=== PATIENT | male | born 1995 | race Caucasian/White ===

== ENCOUNTER 2016-03-09 19:14 | Emergency (ER) | payer BC, OTHER ==
[2016-03-09] MEDS ORDERED: IBUPROFEN 600 MG STARTER PACK 4 TAB BTL PO STA (20:18)
--- NOTE | 2016-03-09 20:26 | ED ---
General Adult HPI - General Chief complaint: Headache Stated complaint: Injury/Dizzy/Nausea Time Seen by Provider: 03/09/16 20:02 Source: patient, RN notes reviewed Mode of arrival: ambulatory Limitations: no limitations - History of Present Illness Initial comments: Patient 21-year-old male who presents emergency room today with chief complaint of a head injury that occurred 2 days ago. Does admit that he was hit in the head by a heavy door on the left side. States does not remember much of the accident. States he is unsure if he lost consciousness. Patient admits that he 's been having increased headaches over the last 2 days. Patient admits to nausea at times. Patient denies any other complaints or associated symptoms. Patient denies any recent fever, chills, shortness of breath, chest pain, back pain, abdominal pain, vomiting, numbness or tingling, dysuria or hematuria, constipation or diarrhea, visual changes, or any other complaints. - Related Data Home Medications Medication Instructions Recorded Confirmed No Known Home Medications [No 11/01/13 11/01/13 Known Home Medications] Allergies Allergy/AdvReac Type Severity Reaction Status Date / Time No Known Allergies Allergy Verified 03/09/16 19:24 Review of Systems ROS Statement: Those systems with pertinent positive or pertinent negative responses have been documented in the HPI. ROS Other: All systems not noted in ROS Statement are negative. Past Medical History Additional Past Medical History / Comment(s): concussion History of Any Multi-Drug Resistant Organisms: None Reported Additional Past Surgical History / Comment(s): deviated septum Past Psychological History: Anxiety, Bipolar, Depression Smoking Status: Never smoker Past Alcohol Use History: None Reported Past Drug Use History: None Reported General Exam - General Exam Comments Initial Comments: General: The patient is awake and alert, in no distress, and does not appear acutely ill. Eye: Pupils are equal, round and reactive to light, extra-ocular movements are intact. No nystagmus. There is normal conjunctiva bilaterally. No signs of icterus. Ears, nose, mouth and throat: There are moist mucous membranes and no oral lesions. Neck: The neck is supple, there is no tenderness or JVD. Cardiovascular: There is a regular rate and rhythm. No murmur, rub or gallop is appreciated. Respiratory: Lungs are clear to auscultation, respirations are non-labored, breath sounds are equal. No wheezes, stridor, rales, or rhonchi. Musculoskeletal: Normal ROM, no tenderness. Strength 5/5. Sensation intact. Pulses equal bilaterally 2+. Neurological: A&O x 3. CN II-XII intact, There are no obvious motor or sensory deficits. Coordination appears grossly intact. Speech is normal. Normal finger nose testing. Normal rapid alternating movements. Strength is 5/5 bilaterally both upper and lower some extremities. Normal gait. Skin: Skin is warm and dry and no rashes or lesions are noted. Psychiatric: Cooperative, appropriate mood & affect, normal judgment. Limitations: no limitations Course Vital Signs 03/09/16 19:20 Temperature 97.5 F L Pulse Rate 73 Respiratory 18 Rate Blood Pressure 142/69 O2 Sat by Pulse 98 Oximetry Medical Decision Making - Medical Decision Making Patient's CT negative for any acute abnormalities. Results were discussed with the patient. Patient advised to follow-up family doctor or his neurologist. Advised return to emergency room if any symptoms increase or worsen or for any other concerns. Disposition Clinical Impression: Post concussion syndrome Disposition: HOME SELF-CARE Condition: Good Instructions: Post Concussion Syndrome (ED) Additional Instructions: Please use medication as discussed. Please follow-up with family doctor/ neurologist over the next 2-5 days. Please limit physical activity. Please return to emergency room if the symptoms increase or worsen or for any other concerns. Time of Disposition: 21:00
--- NOTE | 2016-03-09 20:55 | CT ---
EXAMINATION TYPE: CT brain wo con DATE OF EXAM: 03/09/2016 8:21 PM COMPARISON: 11/01/2013 HISTORY: Pt states of OLIVEIRA and dizziness after injury to head x1 week ago. CT DLP: 931.9 mGycm Automated exposure control for dose reduction was used. FINDINGS: The ventricles and sulci appear normal. There is no mass effect nor midline shift. There is no sign o f intracranial hemorrhage. The calvarium is intact. IMPRESSION: Negative unenhanced head CT scan. No change.
[2016-03-09 21:07] VITALS: BP 140/80; PULSE 78; RESP 16; TEMP 97.8
== END 2016-03-09 21:06 | disposition home or self-care (01) ==
LOC: EC 19:14
DX: F07.81 Postconcussional syndrome (principal); W22.09XA Striking against other stationary object, initial encounter
CPT/HCPCS: 70450; 99284

== ENCOUNTER 2016-07-15 13:24 | Emergency (ER) | payer BC, OTHER ==
[2016-07-15] MEDS ORDERED: SODIUM CHLORIDE 0.9% 1,000 ML IV STA (13:49)
--- NOTE | 2016-07-15 13:56 | ED ---
General Adult HPI - General Chief complaint: Nausea/Vomiting/Diarrhea Stated complaint: abdominal pain Time Seen by Provider: 07/15/16 13:37 Source: patient, RN notes reviewed Mode of arrival: ambulatory Limitations: no limitations - History of Present Illness Initial comments: This is a 21-year-old male with a benign past medical history states he's had some left upper quadrant abdominal area pain for the past several days. He states he gets worse with food or fluid intake he has worse with deep breathing. When it comes on it is sharp severe 10/10 currently at rest he is pain-free. He denies any fevers chills or sweats no dysuria hematuria no diarrhea constipation. He was seen at [facility] last night he did have a noncontrast CT done and some lab work. A noncontrast CT was negative for any acute findings and lab work UA was negative the CBC did show some mild elevation of the white count with a left shift otherwise it was unremarkable the electrolyte study was essentially within normal limits. He presents today with persistent pain and continued pain. He points again to the left upper quadrant he denies any cough or phlegm production he does note however that recently he is been getting short of breath after will use to be normal exertion. No recent trips no recent trauma he does do a lot of lifting at work. He does not recall any incident that may have hurt his chest or abdominal region. - Related Data Home Medications Medication Instructions Recorded Confirmed Omeprazole [PriLOSEC] 40 mg PO DAILY 07/15/16 07/15/16 Ondansetron Odt [Zofran Odt] 8 mg PO Q8HR PRN 07/15/16 07/15/16 traMADol HCL [Ultram] 50 - 100 mg PO Q6HR PRN 07/15/16 07/15/16 Previous Rx's Medication Instructions Recorded Ibuprofen 800 mg PO Q6HR PRN #20 tablet 07/15/16 Pantoprazole Sodium [Protonix] 20 mg PO AC-BID #14 tablet. 07/15/16 Allergies Allergy/AdvReac Type Severity Reaction Status Date / Time No Known Allergies Allergy Verified 07/15/16 13:50 Review of Systems ROS Statement: Those systems with pertinent positive or pertinent negative responses have been documented in the HPI. ROS Other: All systems not noted in ROS Statement are negative. Past Medical History Additional Past Medical History / Comment(s): concussion History of Any Multi-Drug Resistant Organisms: None Reported Additional Past Surgical History / Comment(s): deviated septum Past Psychological History: Anxiety, Bipolar, Depression Smoking Status: Never smoker Past Alcohol Use History: None Reported Past Drug Use History: None Reported General Exam - General Exam Comments Initial Comments: This is a well-developed well-nourished awake alert oriented x 3 male Limitations: no limitations General appearance: alert, in no apparent distress Head exam: Present: atraumatic, normocephalic, normal inspection Eye exam: Present: normal appearance, PERRL, EOMI. Absent: scleral icterus, conjunctival injection, periorbital swelling ENT exam: Present: normal exam, mucous membranes moist Neck exam: Present: normal inspection. Absent: tenderness, meningismus, lymphadenopathy Respiratory exam: Present: normal lung sounds bilaterally, chest wall tenderness (Some tenderness along the left upper costochondral and costosternal margin. Step-off or crepitation). Absent: respiratory distress, wheezes, rales , rhonchi, stridor Cardiovascular Exam: Present: regular rate, normal rhythm, normal heart sounds. Absent: systolic murmur, diastolic murmur, rubs, gallop, clicks GI/Abdominal exam: Present: soft, tenderness (Very mild left upper quadrant tenderness palpation no guarding rebound masses or bruits), normal bowel sounds. Absent: distended, guarding, rebound, rigid Extremities exam: Present: normal inspection, full ROM, normal capillary refill. Absent: tenderness, pedal edema, joint swelling, calf tenderness Back exam: Present: normal inspection Neurological exam: Present: alert, oriented X3, CN II-XII intact Psychiatric exam: Present: normal affect, normal mood Skin exam: Present: warm, dry, intact, normal color. Absent: rash Course Vital Signs 07/15/16 13:34 Temperature 97.4 F L Pulse Rate 69 Respiratory 20 Rate Blood Pressure 125/62 O2 Sat by Pulse 98 Oximetry - Reevaluation(s) Reevaluation #1: 07/15/16 16:05 I did reevaluate patient several occasions patient had some minimal relief with the GI cocktail and Toradol doesn't help very much the patient does have 2 appear distinct issues going on was mild gastritis the second seems be some costochondritis. He will continue his current medications that were prescribed at the [facility]. He'll also be placed on medications for gastritis and medication L for the costochondritis Medical Decision Making - Lab Data Result diagrams: 07/15/16 13:58 07/15/16 13:58 Lab Results 07/15/16 07/15/16 07/15/16 Range/Units 13:58 13:58 13:58 WBC 10.6 (3.8-10.6) k/uL RBC 5.17 (4.30-5.90) m/uL Hgb 15.4 (13.0-17.5) gm/dL Hct 44.9 (39.0-53.0) % MCV 86.9 (80.0-100.0) fL MCH 29.8 (25.0-35.0) pg MCHC 34.3 (31.0-37.0) g/dL RDW 13.4 (11.5-15.5) % Plt Count 199 (150-450) k/uL Neutrophils % 79 % Lymphocytes % 10 % Monocytes % 7 % Eosinophils % 1 % Basophils % 0 % Neutrophils # 8.4 H (1.3-7.7) k/uL Lymphocytes # 1.1 (1.0-4.8) k/uL Monocytes # 0.8 (0-1.0) k/uL Eosinophils # 0.1 (0-0.7) k/uL Basophils # 0.0 (0-0.2) k/uL D-Dimer (<0.60) mg/L FEU Sodium 140 (137-145) mmol/L Potassium 4.1 (3.5-5.1) mmol/L Chloride 103 (98-107) mmol/L Carbon Dioxide 27 (22-30) mmol/L Anion Gap 10 mmol/L BUN 10 (9-20) mg/dL Creatinine 0.87 (0.66-1.25) mg/dL Est GFR (MDRD) Af Amer >60 (>60 ml/min/1.73 sqM) Est GFR (MDRD) Non-Af >60 (>60 ml/min/1.73 sqM) Glucose 93 (74-99) mg/dL Calcium 9.6 (8.4-10.2) mg/dL Magnesium 2.0 (1.6-2.3) mg/dL Total Bilirubin 1.0 (0.2-1.3) mg/dL AST 32 (17-59) U/L ALT 48 (21-72) U/L Alkaline Phosphatase 75 (38-126) U/L Total Creatine Kinase (55-170) U/L CK-MB (CK-2) (0.0-2.4) ng/mL CK-MB (CK-2) Rel Index Total Protein 7.7 (6.3-8.2) g/dL Albumin 4.6 (3.5-5.0) g/dL Amylase 63 (30-110) U/L Lipase 55 (23-300) U/L Urine Color Yellow Urine Appearance Turbid (Clear) Urine pH 7.5 (5.0-8.0) Ur Specific [place] 1.018 (1.001-1.035) Urine Protein Negative (Negative) Urine Glucose (UA) Negative (Negative) Urine Ketones Negative (Negative) Urine Blood Negative (Negative) Urine Nitrite Negative (Negative) Urine Bilirubin Negative (Negative) Urine Urobilinogen 2.0 (<2.0) mg/dL Ur Leukocyte Esterase Negative (Negative) Amorphous Sediment Occasional H (None) /hpf 07/15/16 07/15/16 Range/Units 13:58 13:58 WBC (3.8-10.6) k/uL RBC (4.30-5.90) m/uL Hgb (13.0-17.5) gm/dL Hct (39.0-53.0) % MCV (80.0-100.0) fL MCH (25.0-35.0) pg MCHC (31.0-37.0) g/dL RDW (11.5-15.5) % Plt Count (150-450) k/uL Neutrophils % % Lymphocytes % % Monocytes % % Eosinophils % % Basophils % % Neutrophils # (1.3-7.7) k/uL Lymphocytes # (1.0-4.8) k/uL Monocytes # (0-1.0) k/uL Eosinophils # (0-0.7) k/uL Basophils # (0-0.2) k/uL D-Dimer 0.29 (<0.60) mg/L FEU Sodium (137-145) mmol/L Potassium (3.5-5.1) mmol/L Chloride (98-107) mmol/L Carbon Dioxide (22-30) mmol/L Anion Gap mmol/L BUN (9-20) mg/dL Creatinine (0.66-1.25) mg/dL Est GFR (MDRD) Af Amer (>60 ml/min/1.73 sqM) Est GFR (MDRD) Non-Af (>60 ml/min/1.73 sqM) Glucose (74-99) mg/dL Calcium (8.4-10.2) mg/dL Magnesium (1.6-2.3) mg/dL Total Bilirubin (0.2-1.3) mg/dL AST (17-59) U/L ALT (21-72) U/L Alkaline Phosphatase (38-126) U/L Total Creatine Kinase 308 H (55-170) U/L CK-MB (CK-2) 2.6 H* (0.0-2.4) ng/mL CK-MB (CK-2) Rel Index 0.8 Total Protein (6.3-8.2) g/dL Albumin (3.5-5.0) g/dL Amylase (30-110) U/L Lipase (23-300) U/L Urine Color Urine Appearance (Clear) Urine pH (5.0-8.0) Ur Specific [place] (1.001-1.035) Urine Protein (Negative) Urine Glucose (UA) (Negative) Urine Ketones (Negative) Urine Blood (Negative) Urine Nitrite (Negative) Urine Bilirubin (Negative) Urine Urobilinogen (<2.0) mg/dL Ur Leukocyte Esterase (Negative) Amorphous Sediment (None) /hpf Disposition Clinical Impression: Gastritis, Costochondritis, acute Disposition: HOME SELF-CARE Condition: Good Instructions: Acute Nausea and Vomiting (ED), Gastritis (ED), Costochondritis ( ED) Prescriptions: Ibuprofen 800 mg PO Q6HR PRN #20 tablet PRN Reason: Pain Pantoprazole Sodium [Protonix] 20 mg PO AC-BID #14 tablet.dr Referrals: Wandy Mcneill MD [Primary Care Provider] - 1-2 days
[2016-07-15 14:40] LABS: Basophils % (A) 0 %; CHCM 34.7; Eosinophils # (A) 0.1 k/uL (0-0.7); Eosinophils % (A) 1 %; HCT 44.9 % (39.0-53.0); HGB 15.4 gm/dL (13.0-17.5); Luc # (Auto) 0.22; Luc % (Auto) 2; Lymphocytes # (A) 1.1 k/uL (1.0-4.8); Lymphocytes % (A) 10 %; MCH 29.8 pg (25.0-35.0); MCHC 34.3 g/dL (31.0-37.0); MCV 86.9 fL (80.0-100.0); Monocytes # (A) 0.8 k/uL (0-1.0); Monocytes % (A) 7 %; Neutrophils # (A) 8.4 k/uL (1.3-7.7); Neutrophils % (A) 79 %; RBC 5.17 m/uL (4.30-5.90); RDW 13.4 % (11.5-15.5); WBC 10.6 k/uL (3.8-10.6); WBC (Perox) 10.31
[2016-07-15 14:43] LABS: Amorphous Sediment,Urine Occasional /hpf; Appearance,Urine Turbid (Clear); Bilirubin,Urine Negative (Negative); Glucose,Urine (UA) Negative (Negative); Ketones,Urine Negative (Negative); Leukocyte Esterase,Urine Negative (Negative); Nitrite,Urine Negative (Negative); PH, Urine 7.5 (5.0-8.0); Particle Count 14255; Protein,Urine Negative (Negative); Specific Gravity,Urine 1.018 (1.001-1.035); UA Billing (MACRO vs. MICRO) MICRO
[2016-07-15 14:48] LABS: ALT 48 U/L (21-72); AST 32 U/L (17-59); Alkaline Phosphatase 75 U/L (38-126); Amylase 63 U/L (30-110); Anion Gap 10 mmol/L; Blood Urea Nitrogen 10 mg/dL (9-20); Calcium 9.6 mg/dL (8.4-10.2); Carbon Dioxide 27 mmol/L (22-30); Chloride 103 mmol/L (98-107); Glucose 93 mg/dL (74-99); Non-African American GFR(MDRD) >60 (>60 ml/min/1.73 sqM); Potassium 4.1 mmol/L (3.5-5.1); Sodium 140 mmol/L (137-145); Total Protein 7.7 g/dL (6.3-8.2)
--- NOTE | 2016-07-15 14:53 | XR ---
EXAMINATION TYPE: XR chest 2V DATE OF EXAM: 07/15/2016 2:19 PM COMPARISON: NONE HISTORY: Left upper quadrant pain TECHNIQUE: Frontal and lateral views of the chest are obtained. FINDINGS: Heart and mediastinum are normal. Lungs are clear. Diaphragm is normal. Bony thorax is int act. IMPRESSION: Normal chest
--- NOTE | 2016-07-15 14:55 | XR ---
EXAMINATION TYPE: XR KUB DATE OF EXAM: 07/15/2016 2:19 PM COMPARISON: NONE HISTORY: Left upper quadrant pain TECHNIQUE: 2 views FINDINGS: Bowel gas pattern is normal. There is no sign of intestinal obstruction or pneumoperitoneum . Fecal pattern is normal. Lung bases are clear. There are no pathologic calcifications over the kidn eys. IMPRESSION: Nonacute abdomen.
[2016-07-15] MEDS ORDERED: MAG HYDROX/AL HYDROX/SIMETH 30 ML, HYOSCYAMINE ELIXIR 10 ML, CIMETIDINE HCL 300 MG PO STA ×3 (15:03)
[2016-07-15 15:15] LABS: Creatine Kinase MB 2.6 ng/mL (0.0-2.4)
[2016-07-15] MEDS ORDERED: KETOROLAC 30 MG/ML 1 ML VIAL IVP STA (15:44)
[2016-07-15 16:16] VITALS: BP 113/59; PULSE 80; RESP 16; TEMP 97.8
== END 2016-07-15 16:45 | disposition home or self-care (01) ==
LOC: EC 13:24
DX: K29.70 Gastritis, unspecified, without bleeding (principal); M94.0 Chondrocostal junction syndrome [Tietze]; Z79.899 Other long term (current) drug therapy
CPT/HCPCS: 99284; 96374; 96361 ×3; 36415; 85379; 80053; 82150; 82550; 82553; 83690; 83735; 85025; 81001; 71020; 74000; J1885

== ENCOUNTER 2017-08-07 11:33 | Inpatient (IN) | payer BC, MEDICAID ==
[2017-08-07 13:03] VITALS: RESP 16
[2017-08-07] MEDS ORDERED: MAG HYDROX/AL HYDROX/SIMETH 30 ML CUP PO PRN (13:20)
[2017-08-07] MEDS ORDERED: ACETAMINOPHEN TAB 325 MG TAB PO PRN (13:20)
--- NOTE | 2017-08-07 13:59 | P.HP ---
Psychiatric H&P - . H&P Date: 08/07/17 History & Physical: Identification data: The patient is a single 22-year-old male transferred from [facility] with history of depression and suicidal ideation. History of Present Illness: His mother brought him to the emergency room at [facility] after he confided in her his feelings of depression and thoughts of suicide. He stated that he has been feeling depressed for many years and depression has worsened significantly since the of his grandfather 2 years ago. He began to experience feelings of hopelessness, helplessness and thoughts of suicide after taking a job with the [employer] and working in [employer]. He stated that [place] his entire life and the 5 months he was in [place] was the first time he had been alone. He stated he couldn't stand being away from his family for such an extended period time and living in motels. His employment contract was one year and he left after 5 months. He stated that he feels "empty and hopeless". Over the last 5 months he has been persistently sad, hopeless and helpless. He described feelings of worthlessness and self reproach. He feels that he has let himself know the people down. He feels guilty over ending a relationship with his long-term girlfriend but denied that he feels as though his present illness as a punishment for his past misdeeds. He denied experiencing delusions of guilt or having accusatory or denunciatory voices or experiencing threatening hallucinations. He feels that life is not worth living and wishes he were . He had thoughts of suicide including hanging himself or jumping from the elevator shaft at work. He denied suicide attempts. He complained of initial and middle insomnia. He feels chronic fatigue and weakness. He also feels tense, nervous and irritable and described somatic anxiety symptoms including dry mouth, indigestion, heart palpitations, headaches, hyperventilation and sweating. He described a recent increase in appetite (he stopped taking Adderall 60 mg per day one month ago). He described periods of increased anxiety but denied a pattern of increasing anxiety suggestive of panic attacks. He denied obsessions or compulsions. He drinks alcohol socially and denied use of drugs to get high, help him sleep or changes mood. He denied auditory, visual or olfactory hallucinations, ideas reference, thought insertion, thought broadcasting or thought control. Past Psychiatric History: His primary care provider prescribed Wellbutrin about 3 years ago for the treatment of complaints of depression. He took the Wellbutrin briefly and did not notice a change. About one year ago, after trying a friend's Adderall, he went to a physician who had a reputation of prescribing Adderall. He was diagnosed with adult ADHD and prescribed Adderall at doses up to 60 mg per day. He stopped taking Adderall 1 month ago concerned that he is becoming "addicted". He stated that he found that he could not get up in the morning or initiate activities without taking Adderall. Medical History: She denied a history of major medical problems. Substance Use History: He drinks alcohol socially. He smoked marijuana in high school but denied current use of drugs. Family Psychiatric/Substance Use History: He stated that his father was diagnosed with bipolar disorder. There are mood disorders and substance use problems in his father's family. Legal History: She denied a history of legal problems. Social History:He was born and raised in [place]. His parents when he was young. He was raised by his mother and his stepfather. He has 2 brothers and 2 sisters. He has a close relationship with his mother. He graduated from high school. 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 He is currently unemployed after leaving the [facility] and [employer]. He is single and has no children. Mental Status Exam: He presented as a casually groomed young male who was pleasant on approach. He made eye contact and attended to the interview. He had no distinguishing features or prominent physical abnormalities. He had a depressed facial expression. He was alert and oriented to person, place and time. He showed slight psychomotor retardation but no abnormal movements. His speech was spontaneous with normal rate, rhythm and volume. His affect was dysphoric with a mixture of depression and anxiety. He describes suicidal ideation but denied wishes or suicidal intent or plan. He denied homicidal ideation. He describes such depressive cognitions as hopelessness, helplessness and worthlessness. He ruminated about the circumstances that brought him to the hospital but denied phobias, ideas reference, paranoid ideation or delusional thoughts. His thinking was abstract and associations were coherent, logical and goal directed. He denied hallucinations and did not appear to be responding to internal stimuli. Global impression of intellect is average. He is aware of his illness or need for mental health treatment. Strengths: Supportive family, stable housing, good employment history, good physical health Weaknesses: Severe depression Allergies Allergy/AdvReac Type Severity Reaction Status Date / Time No Known Allergies Allergy Verified 07/15/16 13:50 Vital Signs Temp 97.8 F 08/07/17 12:05 Pulse 67 08/07/17 12:05 Resp 16 08/07/17 12:05 BP 110/59 08/07/17 12:05 Pulse Ox Intake & Output 08/06/17 08/07/17 08/07/17 18:59 06:59 18:59 Weight 103.8 kg 08/07/17 13:21 08/07/17 13:56 Assessment and Plan Assessment: He is a 22-year-old single male who presented to unit involuntarily with a history of depression and suicidal ideation. He is been depressed for many years and depression worsened during extended separation from his family. History is significant for possible psychostimulant abuse and a recent self detox off a high dose Adderall. He has signs and symptoms of a major depressive disorder uncomplicated by psychotic symptoms. He should be treated inpatient basis with combination of psychopharmacology and multimodal therapy. (1) Suicidal ideation Current Visit: Yes Status: Acute Priority: High Code(s): R45.851 - SUICIDAL IDEATIONS SNOMED Code(s): 7574610 (2) Major depressive disorder, recurrent severe without psychotic features Current Visit: Yes Status: Acute Priority: High Code(s): F33.2 - MAJOR DEPRESSV DISORDER, RECURRENT SEVERE W/O PSYCH FEATURES SNOMED Code(s): 56457982 (3) Amphetamine and psychostimulant withdrawal Current Visit: Yes Status: Acute Priority: Medium Code(s): F15.23 - OTHER STIMULANT DEPENDENCE WITH WITHDRAWAL SNOMED Code(s): 836051822 Plan: Admitted to the psychiatric unit. Safety precautions. Consult medicine for initial physical exam and medical history. tare worker to complete a psychosocial assessment. Begin a trial of Luvox 50 mg daily and titrated according to clinical response and tolerance. Obtain collateral information from family. Encourage participation in therapeutic groups and activities. Evaluate clinical status response to treatment on a daily basis.
[2017-08-07] MEDS ORDERED: LORazepam 1 MG TAB PO PRN (14:53)
[2017-08-07] MEDS ORDERED: IBUPROFEN 400 MG TAB PO PRN (15:37)
[2017-08-07] MEDS ORDERED: traMADol 50 MG TAB PO PRN (15:37)
[2017-08-07] MEDS ORDERED: ONDANSETRON ODT 8 MG TAB.RAPDIS PO PRN (15:37)
--- NOTE | 2017-08-07 16:06 | CONS ---
CONSULTATION REASON FOR CONSULTATION: Advice regarding smoking and other medical issues requested by psychiatry. HISTORY: This 22-year-old gentleman with a past medical history of concussion, anxiety, bipolar depression, history of nicotine dependence was admitted for psychiatric evaluation. There is no history of fever, rigors. No history of headache, loss of consciousness, seizures. The baseline labs are not available at this time. The previous labs done last year were normal except slightly elevated CK. PAST MEDICAL HISTORY: History of concussions, anxiety, bipolar, depression, history of nicotine dependence. MEDICATIONS: Prior to admission include home medications are: 1. Ultram 50 to q.6 100 q.6h p.r.n. 2. Protonix 20 mg a.c. b.i.d. 3. Zofran 8 mg q.8h p.r.n. 4. Prilosec 40 mg daily. 5. Ibuprofen 800 mg q6h p.r.n. ALLERGIES: None. FAMILY HISTORY: No history of heart disease or strokes in the family. SOCIAL HISTORY: History of smoking occasional. REVIEW OF SYSTEMS: ENT: No diminished vision. No diminished hearing. CARDIOVASCULAR: No angina or palpitations. RESPIRATORY: No cough or hemoptysis. GI: No nausea or vomiting. : No dysuria. NERVOUS SYSTEM: No numbness or weakness. ALLERGY/IMMUNOLOGY: No asthma or hayfever. MUSCULOSKELETAL: As mentioned earlier. HEMATOLOGY/ONCOLOGY: No history of anemia. ENDOCRINE: No history of diabetes or hypothyroidism. CONSTITUTIONAL: As mentioned earlier. DERMATOLOGY: Negative. RHEUMATOLOGY: Negative. PSYCHIATRY: As mentioned earlier. PHYSICAL EXAMINATION: The patient is alert and oriented x3. Pulse 67, blood pressure 110/59, respirations 16, temperature 97.8. Pulse ox normal. HEENT: Conjunctivae normal. Oral mucosa moist. NECK is no jugular venous distention. No carotid bruit. No lymph node enlargement. CARDIOVASCULAR SYSTEM: S1, S2 muffled. RESPIRATORY: Breath sounds diminished in the bases. No rhonchi. No crackles. ABDOMEN: Soft, nontender. No mass palpable. Legs are no edema. No swelling. CENTRAL NERVOUS SYSTEM: Higher functions as mentioned earlier. Moves all four limbs. No focal motor deficits. LYMPHATICS: No lymph nodes palpable in the neck, axillae or groin. SKIN: No ulcer, rash or bleeding. LABORATORY DATA: Recent labs are not available. Previous labs are noted. ASSESSMENT: 1. Anxiety, bipolar depression. 2. History of nicotine dependence. 3. History of concussion. RECOMMENDATIONS AND DISCUSSION: In this 22-year-old gentleman who presented with multiple medical issues at this time, recommend to continue current medications, management and symptomatic treatment. Otherwise, I would recommend, resume the home medications and continue to monitor. Prognosis guarded because of multiple complex medical issues. Further recommendations to follow. MMODL / IJN: [id number] /
[2017-08-07] MEDS: PANTOPRAZOLE SODIUM 40 MG GRANULE PKT PO SCH (16:59)
[2017-08-08] MEDS: PANTOPRAZOLE SODIUM 40 MG GRANULE PKT PO SCH ×2 (09:22→17:15)
--- NOTE | 2017-08-08 14:48 | P.PN ---
Subjective Progress Note Date: 08/08/17 Principal diagnosis: Suicidal ideation, which depressed disorder recurrent, amphetamine withdrawal I reviewed the medical record, interviewed the patient and discuss his treatment and treatment plan during team meeting. He reported a decrease in his feelings depression and absence of suicidal thoughts since his admission. He continued to experience moderate tension and anxiety. He denied auditory hallucinations. We talked more about the circumstances that led to this hospitalization. He described his concerns when he was working for the [employer] in [facility]. The hours were long and the work was physically demanding. He gave examples where the actions of other employees jeopardized his safety. He felt that he always had to be on guard for his safety due to the reckless behavior of the other employees. He also from his girlfriend of 3 years. He commuted to and from his home every week to the work site and [facility] ([address] This also time when he was withdrawing off of Adderall. Objective - Vital Signs Vital signs: Vital Signs Temp 97.9 F 08/08/17 06:22 Pulse 66 08/08/17 06:22 Resp 16 08/08/17 06:22 BP 95/55 08/08/17 06:22 Pulse Ox Intake & Output 08/07/17 08/08/17 08/08/17 18:59 06:59 18:59 Weight 103.8 kg - Psychiatric Psychiatric Comment(s): He presented as a casually dressed Empire and groomed young male. He made eye contact and attended the interview. He had a blunted but bright facial expression. He was alert and oriented to person, place and time. He showed slight psychomotor retardation but no abnormal movements. He was not restless or agitated. His speech was spontaneous with slight decrease in rate and rhythm. He had no articulation difficulties. His affect was depressed but reactive. On a 10 point Likert scale he rated his depression as a "5" and his anxiety as a "9". He denied current suicidal ideation or wishes. He denied homicidal ideation. He ruminated about the problems encountered when he was working for the [employer]. He did not express phobias, ideas reference, paranoid ideation or delusional thoughts. His thinking was abstract and associations were coherent, logical and goal directed. He denied hallucinations and did not appear to be responding to internal stimuli. Assessment and Plan Assessment: He continues describe symptoms of depression and anxiety but the suicidal thoughts and apparent hallucinations have not occurred since he has been inpatient. (1) Suicidal ideation Current Visit: Yes Status: Acute Priority: High Code(s): R45.851 - SUICIDAL IDEATIONS SNOMED Code(s): 8628364 (2) Major depressive disorder, recurrent severe without psychotic features Current Visit: Yes Status: Acute Priority: High Code(s): F33.2 - MAJOR DEPRESSV DISORDER, RECURRENT SEVERE W/O PSYCH FEATURES SNOMED Code(s): 49069266 (3) Amphetamine and psychostimulant withdrawal Current Visit: Yes Status: Chronic Priority: Low Code(s): F15.23 - OTHER STIMULANT DEPENDENCE WITH WITHDRAWAL SNOMED Code(s): 960832671 Plan: Continue inpatient hospitalization. Suicide precautions. Begin Luvox 50 mg at bedtime and titrated according to clinical response and tolerance. Encourage participation in therapeutic groups and activities. deck worker to assist with aftercare arrangements. Evaluate clinical status response to treatment on a daily basis.
[2017-08-09 06:32] VITALS: BP 118/56; PULSE 65; TEMP 97.8
[2017-08-09] MEDS: PANTOPRAZOLE SODIUM 40 MG GRANULE PKT PO SCH (07:56)
--- NOTE | 2017-08-09 16:32 | P.DS ---
Providers Date of admission: 08/07/17 11:33 Attending physician: Miguel Tinoco MD Consults: 08/07/17 13:20 Consult Physician Routine Consulting Provider: Georgiana Sultana Consult Reason/Comments: H and P and medical management Do you want consulting provider notified?: Yes Primary care physician: Wandy Mcneill - Discharge Diagnosis(es) (1) Suicidal ideation Current Visit: Yes Status: Resolved Priority: High (2) Major depressive disorder, recurrent severe without psychotic features Current Visit: Yes Status: Acute Priority: High (3) Amphetamine and psychostimulant withdrawal Current Visit: Yes Status: Resolved Priority: Low Hospital Course: The patient is a 22-year-old single male transferred from [facility] depression and suicidal ideation. His mother brought him to their primary care provider concerned about his emotional state. The primary care provider referred him to the emergency room because he talked about "hearing voices" to having thoughts of suicide. He described symptoms of depression including sadness, hopelessness and helplessness. He described other symptoms consistent with a major depressive disorder. The depression developed in relation to several stresses. He broke up with his girlfriend of 3 years, quit a job where he had been working for only 5 months and had withdrawn himself off of chronic high-dose use of Adderall. We admitted to the psychiatric unit under care of this sign writer hand. We provided a biopsychosocial assessment. The party plan sales consultant tool and die engineer completed initial physical exam and medical history. The tool and die engineer diagnosed tobacco use disorder and history of a concussion. We prescribed Luvox 50 mg at bedtime for the treatment of depressive symptoms. He participated in therapeutic groups and activities. He posed no management problem and had no episodes of behavioral dyscontrol. His suicidal symptoms resolved in the therapeutic milieu. His description of "voices" were not true auditory hallucinations. During the family meeting he reported improvement in his mood. He plans to live with his mother temporarily and will engage in outpatient mental health services. At the time of discharge she presented as a casually dressed and casually groomed young male who was pleasant on approach. He had no distinguishing features or prominent physical abnormalities he had a blunted but bright facial expression. He had slight psychomotor retardation but no abnormal movements. His speech was spontaneous with normal rate, rhythm and volume. His affect was depressed but stable and appropriate. He denied suicidal ideation or wishes. He denied homicidal ideation. He denied feeling hopeless, helpless or worthless. He did not express phobias, ideas reference, paranoid ideation or delusions. His thinking was abstract and associations were coherent, logical and goal directed. He denied hallucinations and did not appear to be responding to internal stimuli. Patient Condition at Discharge: Good Plan - Discharge Summary New Discharge Prescriptions: New fluvoxaMINE [Luvox] 50 mg PO HS #30 tab Continue Ibuprofen 800 mg PO Q6HR PRN #20 tablet PRN Reason: Pain Pantoprazole Sodium [Protonix] 20 mg PO AC-BID #14 tablet. Discontinued traMADol HCL [Ultram] 50 - 100 mg PO Q6HR PRN PRN Reason: Pain Ondansetron Odt [Zofran Odt] 8 mg PO Q8HR PRN PRN Reason: Nausea Omeprazole [PriLOSEC] 40 mg PO DAILY Discharge Medication List Ibuprofen 800 mg PO Q6HR PRN #20 tablet 07/15/16 [Rx] Pantoprazole Sodium [Protonix] 20 mg PO AC-BID #14 tablet. 07/15/16 [Rx] fluvoxaMINE [Luvox] 50 mg PO HS #30 tab 08/09/17 [Rx] Follow up Appointment(s)/Referral(s): psychological, List [Other] - 08/22/17 8:30 am (pt will be added to cancellation list to try to get in sooner. please arrive 30 minutes early for paperwork) Patient Instructions/Handouts: Depression (DC), Suicide Prevention for Adults ( DC) Activity/Diet/Wound Care/Special Instructions: Activity and diet as tolerated. Avoid the use of street drugs and alcohol. Remove all firearms from the home. Take all medications as prescribed. Follow up with your Primary Care Physician in one to two days. When you are in need of refills on your medications please contact your medical provider and/or your outpatient psychiatrist to have this done. Please go to the scheduled outpatient appointment for aftercare. If symptoms return or become worse call the crisis line and/ or go the nearest emergency room for an evaluation. l Discharge Disposition: HOME SELF-CARE
== END 2017-08-09 15:51 | disposition home or self-care (01) | DRG 885 ==
LOC: 3MHU 11:33
PROVIDERS: ADMIT Psychiatry & Neurology Psychiatry; ATTEND Psychiatry & Neurology Psychiatry
DX: F33.2 Major depressive disorder, recurrent severe without psychotic features (principal); F15.23 Other stimulant dependence with withdrawal; R45.851 Suicidal ideations; F41.9 Anxiety disorder, unspecified; Z87.820 Personal history of traumatic brain injury; F90.9 Attention-deficit hyperactivity disorder, unspecified type; G47.00 Insomnia, unspecified; F17.290 Nicotine dependence, other tobacco product, uncomplicated
CPT/HCPCS: 84443

== ENCOUNTER 2020-11-07 18:20 | Emergency (ER) | payer BC ==
[2020-11-07 19:26] VITALS: BP 130/85; PULSE 71; RESP 18; TEMP 98
--- NOTE | 2020-11-07 20:16 | ED ---
General Adult HPI - General Chief complaint: Psychiatric Symptoms Stated complaint: anxiety Time Seen by Provider: 11/07/20 19:47 Source: patient, family, RN notes reviewed Mode of arrival: ambulatory Limitations: no limitations - History of Present Illness Initial comments: 25-year-old male with a past medical history of depression [facility] for a chief complaint of depression and anxiety. Patient reports that he has chronic anxiety. 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 He states that it is starting to affect his work and he stutters during his classroom teachings. He has been on BuSpar before for depression but did not like that. Patient used to see Dr. Ewing but no longer follows with her. He denies any suicidal thoughts. He denies thoughts of homicide. he has had a psychiatric admission in the past. Patient has no other complaints at this time including shortness of breath, chest pain, abdominal pain, nausea or vomiting, headache, or visual changes. - Related Data Previous Rx's Medication Instructions Recorded LORazepam [Ativan] 0.5 mg PO HS PRN 2 Days #2 tab 11/07/20 Allergies Allergy/AdvReac Type Severity Reaction Status Date / Time No Known Allergies Allergy Verified 11/07/20 21:50 Review of Systems ROS Statement: Those systems with pertinent positive or pertinent negative responses have been documented in the HPI. ROS Other: All systems not noted in ROS Statement are negative. Past Medical History Additional Past Medical History / Comment(s): concussion History of Any Multi-Drug Resistant Organisms: None Reported Additional Past Surgical History / Comment(s): deviated septum Past Psychological History: Anxiety, Bipolar, Depression Smoking Status: Current every day smoker Past Alcohol Use History: None Reported Past Drug Use History: None Reported General Exam Limitations: no limitations General appearance: alert, in no apparent distress Head exam: Present: atraumatic Eye exam: Present: normal appearance, PERRL, EOMI. Absent: scleral icterus, conjunctival injection ENT exam: Present: normal exam, mucous membranes moist Neck exam: Present: normal inspection, full ROM. Absent: tenderness Respiratory exam: Present: normal lung sounds bilaterally. Absent: respiratory distress, wheezes Cardiovascular Exam: Present: regular rate, normal rhythm, normal heart sounds GI/Abdominal exam: Present: soft, normal bowel sounds. Absent: distended, tenderness Course Vital Signs 11/07/20 19:23 Temperature 98 F Pulse Rate 71 Respiratory 18 Rate Blood Pressure 130/85 O2 Sat by Pulse 97 Oximetry Medical Decision Making - Medical Decision Making Patient was evaluated by EPS. Currently recommending discharge home. Request a couple Ativan as needed to be sent home. Patient will follow-up with his doctor. He will return for any worsening symptoms. Disposition Clinical Impression: Acute anxiety Disposition: HOME SELF-CARE Condition: Good Instructions (If sedation given, give patient instructions): Anxiety (ED) Additional Instructions: Please follow up with your doctor in 1-2 days. Return to the ER for any worsening symptoms. Prescriptions: LORazepam [Ativan] 0.5 mg PO HS PRN 2 Days #2 tab PRN Reason: Anxiety Is patient prescribed a controlled substance at d/c from ED?: No Referrals: Wandy Mcneill MD [Primary Care Provider] - 1-2 days Time of Disposition: 23:06
[2020-11-07] MEDS ORDERED: LORazepam 1 MG TAB PO STA (23:04)
== END 2020-11-07 23:27 | disposition home or self-care (01) ==
LOC: EC 18:20
DX: F41.9 Anxiety disorder, unspecified (principal); F31.9 Bipolar disorder, unspecified; F17.200 Nicotine dependence, unspecified, uncomplicated
CPT/HCPCS: 82075; 99283

== ENCOUNTER → 2020-12-19 | Outpatient (CLI) | payer OTHER ==
--- NOTE | 2020-12-19 21:59 | MR ---
EXAMINATION TYPE: MR brain wo/w con DATE OF EXAM: 12/19/2020 COMPARISON: Prior MRI brain 2014. CT brain 2017. HISTORY: Mass on cerebellum, to be compared with 2014 MRI. Forgetfulness that has gotten worse in the past year. History of multiple concussions TECHNIQUE: Multiplanar, multisequence images of the brain and brainstem is performed without and with IV contras t, utilizing 11 mL intravenous Gadavist . FINDINGS: Diffusion weighted images demonstrate no evidence of a recent infarct or other diffusion ab normality. There is no new extra-axial fluid collection or new significant white matter signal abnor mality. The ventricular system and cisternal spaces are normal in size and appearance. The brain vo lume is age appropriate. T2*weighted images show no suspicious intraparenchymal blood product. Persis tent stable CSF prominence medial inferior aspect left cerebellar lobe axial image 7 consistent with small arachnoid cyst or focal CSF prominence is unchanged from prior study. Midline structures redemonstrate normal morphology. The craniocervical junction appears stable and w ithin normal limits. Post contrast images demonstrate no abnormal enhancement. The dural venous sinu ses appear patent. The visualized sinuses are clear and the globes are intact. IMPRESSION: Overall stable findings from 2014 MRI. No suspicious new mass or enhancement.
== END | disposition home or self-care (01) ==
LOC: RADMRIMAIN 18:26
PROVIDERS: ATTEND Psychiatry & Neurology Neurology
DX: R41.3 Other amnesia (principal); Z87.820 Personal history of traumatic brain injury
CPT/HCPCS: 70553; A9585